=== PATIENT | male | born 1955 | race Caucasian/White ===

== ENCOUNTER 2017-04-02 11:18 | Emergency (ER) | payer MEDICAID ==
[~2017-04-02 11:18] MED LIST: AMBIEN10 MG PO; BACTRIM DS TABL1 TAB PO; COLACE100 MG PO; COUMADIN10 MG PO; DILAUDID8 MG PO; DOXYCYCLINE HY100 M2 PO; ELIQUIS2.5 MG PO; HYDROCODONE-APA1 TAB PO; MS CONTIN15 MG PO; SENOKOT-S TABLE1 TAB PO; TEFLARO600 MG IV; VANCOMYCIN 1 GM/1 G1 IV; VANCOMYCIN 1 GM/1 G1 IVPB; VITAMIN D50000 UNIT PO
[2017-04-02 13:57] LABS: BASOPHILS 0.1 % (0-2); EOSINOPHILS 5.4 % (0-7); HEMATOCRIT 26.3 % (42.0-54.0); HEMOGLOBIN 8.4 g/dL (13.5-17.5); IMMATURE GRANULOCYTES 1.2 % (0-5); MCH 28.9 pg (26.0-34.0); MCHC 31.9 g/dL (31.0-37.0); MCV 90.4 fL (80.0-100.0); MEAN PLATELET VOLUME 8.4 fL (7.4-10.4); NEUTROPHILS 74.3 % (40-80); RBC 2.91 10x6/uL (4.20-6.10); RDW 16.3 % (11.5-14.5); WBC 15.4 10x3/uL (4.8-10.8)
[2017-04-02 13:59] LABS: PLATELET COUNT 396 10x3/uL (130-400)
[2017-04-02 14:13] LABS: ALBUMIN 1.9 g/dL (3.4-5.0); ALKALINE PHOSPHATASE 78 U/L (46-116); ALT (SGPT) 30 U/L (10-68); BILIRUBIN - TOTAL 0.49 mg/dL (0.2-1.3); CALC OSMOLALITY 268 mosm/kg (275-300); CALCIUM 8.5 mg/dL (8.5-10.1); CARBON DIOXIDE 28.2 mmol/L (21.0-32.0); CHLORIDE - SERUM 97 mmol/L (98-107); CREATININE - SERUM 0.7 mg/dL (0.6-1.3); GLUCOSE 96 mg/dL (74-106); POTASSIUM - SERUM 4.1 mmol/L (3.5-5.1); PROTEIN - SERUM 5.9 g/dL (6.4-8.2); SODIUM 133 mmol/L (136-145); UREA NITROGEN 20 mg/dL (7-18); eGFR NON AFRICAN AMERICAN > 90 mL/min (90-120)
== END 2017-04-02 18:36 | disposition home or self-care (01) ==
LOC: D.ER 11:18
PROVIDERS: Nurse Practitioner Family
DX: G89.18 Other acute postprocedural pain (principal); L03.116 Cellulitis of left lower limb; F17.200 Nicotine dependence, unspecified, uncomplicated

== ENCOUNTER 2017-07-17 15:25 | Emergency (ER) | payer MEDICAID | END 2017-07-17 21:10 | disposition home or self-care (01) | LOC: D.ER 15:25 | DX: M25.552 Pain in left hip (principal); Z98.890 Other specified postprocedural states; Z96.642 Presence of left artificial hip joint; L76.34 Postprocedural seroma of skin and subcutaneous tissue following other procedure; F17.200 Nicotine dependence, unspecified, uncomplicated ==

== ENCOUNTER 2017-11-07 08:00 | Outpatient (CLI) | payer MEDICAID ==
[2014-11-08 16:42] VITALS: Wt 80.3 kg
[2017-11-07 12:25] LABS: HEMOGLOBIN 12.9 g/dL (13.5-17.5); MCH 29.3 pg (26.0-34.0); MCHC 31.5 g/dL (31.0-37.0); MEAN PLATELET VOLUME 9.4 fL (7.4-10.4); RBC 4.41 10x6/uL (4.20-6.10); WBC 7.6 10x3/uL (4.8-10.8)
== END 2017-11-07 08:01 | disposition home or self-care (01) ==
LOC: D.OPS 08:00 → EDSTATUS 11-10 09:00 → D.PAN 11-10 09:00
PROVIDERS: Anesthesiology
DX: K40.20 Bilateral inguinal hernia, without obstruction or gangrene, not specified as recurrent (principal); Z01.810 Encounter for preprocedural cardiovascular examination; Z01.811 Encounter for preprocedural respiratory examination; Z01.812 Encounter for preprocedural laboratory examination; Z53.9 Procedure and treatment not carried out, unspecified reason

== ENCOUNTER 2017-12-24 06:00 | Day surgery (SDC) | payer MEDICAID ==
[~2017-12-24] VITALS: Ht 172.7 cm; Wt 80.3 kg
[2017-12-24 06:20] VITALS: BP 116/77; Ht 172.7 cm; Wt 80.3 kg
[2017-12-24] MEDS ORDERED: HYDROCODON-ACE1 EAC7 PO (09:42)
[2017-12-24] MEDS ORDERED: FLOMAX0.4 MG PO (09:42)
[2017-12-24] MEDS ORDERED: FUROSEMIDE20 MG PO (09:42)
== END 2017-12-24 12:00 | disposition home or self-care (01) ==
LOC: D.OPS 06:00
DX: K40.20 Bilateral inguinal hernia, without obstruction or gangrene, not specified as recurrent (principal); Z01.812 Encounter for preprocedural laboratory examination

== ENCOUNTER 2018-04-10 22:22 | Emergency (ER) | payer MEDICAID ==
[~2018-04-10] VITALS: Ht 172.7 cm; Wt 85.0 kg
[~2018-04-10 22:22] MED LIST changes: +FLOMAX0.4 MG PO; +FUROSEMIDE20 MG PO; +HYDROCODON-ACE1 EAC7 PO
[2018-04-10 22:28] VITALS: Ht 172.7 cm; Wt 85.0 kg
[2018-04-10 22:48] LABS: BASOPHILS 0.1 % (0-2); EOSINOPHILS 2.7 % (0-7); HEMATOCRIT 42.3 % (42.0-54.0); HEMOGLOBIN 14.3 g/dL (13.5-17.5); IMMATURE GRANULOCYTES 0.2 % (0-5); LYMPHOCYTES 28.5 % (15-50); MCHC 33.8 g/dL (31.0-37.0); MCV 94.6 fL (80.0-100.0); MEAN PLATELET VOLUME 9.4 fL (7.4-10.4); MONOCYTES 6.4 % (2-11); NEUTROPHILS 62.1 % (40-80); PLATELET COUNT 198 10x3/uL (130-400); RBC 4.47 10x6/uL (4.20-6.10); RDW 12.9 % (11.5-14.5); WBC 8.6 10x3/uL (4.8-10.8)
[2018-04-10 23:09] LABS: ALBUMIN 3.4 g/dL (3.4-5.0); ALKALINE PHOSPHATASE 127 U/L (46-116); ALT (SGPT) 30 U/L (10-68); AMYLASE - SERUM 59 U/L (25-115); BILIRUBIN - TOTAL 0.56 mg/dL (0.2-1.3); CALC OSMOLALITY 288 mosm/kg (275-300); CALCIUM 8.8 mg/dL (8.5-10.1); CHLORIDE - SERUM 107 mmol/L (98-107); CREATININE - SERUM 1.5 mg/dL (0.6-1.3); GLUCOSE 104 mg/dL (74-106); LIPASE 111 U/L (73-393); POTASSIUM - SERUM 4.1 mmol/L (3.5-5.1); PROTEIN - SERUM 7.2 g/dL (6.4-8.2); SODIUM 142 mmol/L (136-145); TROPONIN-I < 0.017 ng/mL (0.000-0.060); UREA NITROGEN 30 mg/dL (7-18); eGFR NON AFRICAN AMERICAN 51 mL/min (90-120)
[2018-04-11 00:58] LABS: APPEARANCE CLEAR (CLEAR); COLOR YELLOW (YELLOW)
[2018-04-11 00:59] LABS: BILIRUBIN NEGATIVE (NEGATIVE); GLUCOSE NEGATIVE (NEGATIVE); KETONE NEGATIVE (NEGATIVE); NITRITE NEGATIVE (NEGATIVE); PROTEIN NEGATIVE (NEGATIVE); UROBILINOGEN NORMAL (NORMAL)
[2018-04-11] MEDS ORDERED: FLAGYL500 MG PO (01:34)
[2018-04-11] MEDS ORDERED: CIPRO500 MG PO (01:34)
[2018-04-11 01:57] VITALS: BP 139/77
== END 2018-04-11 01:57 | disposition home or self-care (01) ==
LOC: D.ER 22:22
PROVIDERS: Family Medicine
DX: K52.9 Noninfective gastroenteritis and colitis, unspecified (principal); Z86.19 Personal history of other infectious and parasitic diseases; F17.200 Nicotine dependence, unspecified, uncomplicated

== ENCOUNTER 2018-04-20 13:54 | Emergency (ER) | payer MEDICAID ==
[~2018-04-20] VITALS: Ht 172.7 cm; Wt 81.8 kg
[~2018-04-20 13:54] MED LIST changes: +CIPRO500 MG PO; +FLAGYL500 MG PO
[2018-04-20 13:58] VITALS: Ht 172.7 cm; Wt 81.8 kg
[2018-04-20 14:30] LABS: BASOPHILS 0.2 % (0-2); EOSINOPHILS 1.6 % (0-7); HEMATOCRIT 44.9 % (42.0-54.0); HEMOGLOBIN 15.2 g/dL (13.5-17.5); IMMATURE GRANULOCYTES 0.3 % (0-5); MCH 31.7 pg (26.0-34.0); MCHC 33.9 g/dL (31.0-37.0); MCV 93.7 fL (80.0-100.0); MEAN PLATELET VOLUME 9.4 fL (7.4-10.4); MONOCYTES 7.3 % (2-11); NEUTROPHILS 73.6 % (40-80); RBC 4.79 10x6/uL (4.20-6.10); RDW 13.1 % (11.5-14.5); WBC 11.8 10x3/uL (4.8-10.8)
[2018-04-20 14:49] LABS: ALBUMIN 3.5 g/dL (3.4-5.0); ALKALINE PHOSPHATASE 117 U/L (46-116); ALT (SGPT) 21 U/L (10-68); AMYLASE - SERUM 86 U/L (25-115); BILIRUBIN - TOTAL 0.51 mg/dL (0.2-1.3); CALC OSMOLALITY 281 mosm/kg (275-300); CARBON DIOXIDE 23.1 mmol/L (21.0-32.0); CHLORIDE - SERUM 105 mmol/L (98-107); CREATININE - SERUM 0.8 mg/dL (0.6-1.3); GLUCOSE 108 mg/dL (74-106); LIPASE 127 U/L (73-393); POTASSIUM - SERUM 4.1 mmol/L (3.5-5.1); PROTEIN - SERUM 7.4 g/dL (6.4-8.2); SODIUM 141 mmol/L (136-145); UREA NITROGEN 12 mg/dL (7-18); eGFR NON AFRICAN AMERICAN > 90 mL/min (90-120)
[2018-04-20 14:51] LABS: PLATELET COUNT 247 10x3/uL (130-400)
[2018-04-20 16:48] LABS: APPEARANCE CLEAR (CLEAR); BILIRUBIN 1+ (NEGATIVE); COLOR DK YELLOW (YELLOW); GLUCOSE NEGATIVE (NEGATIVE); KETONE NEGATIVE (NEGATIVE); NITRITE NEGATIVE (NEGATIVE); PROTEIN TRACE mg/dL (NEGATIVE); SPECIFIC GRAVITY 1.015 (1.005-1.020); UROBILINOGEN NORMAL (NORMAL)
[2018-04-20 16:50] LABS: BACTERIA FEW /hpf (NONE SEEN); EPITHELIAL CELLS 0-5 /hpf (0-5); MUCUS <1+ /lpf (NONE SEEN); RED CELLS - URINE 0-5 /hpf (0-5)
[2018-04-20] MEDS ORDERED: LOMOTIL 2.5-0.1 EAC1 PO (18:23)
[2018-04-20] MEDS ORDERED: CIPRO500 MG PO (18:23)
[2018-04-20] MEDS ORDERED: HYDROCODON-ACE1 EAC2 PO (18:23)
[2018-04-20] MEDS ORDERED: ZOFRAN ODT4 MG/UDTAB PO (18:23)
[2018-04-20] MEDS ORDERED: FLAGYL500 MG PO (18:23)
[2018-04-20 19:21] VITALS: BP 156/90
== END 2018-04-20 19:15 | disposition home or self-care (01) ==
LOC: D.ER 13:54
PROVIDERS: Family Medicine
DX: K52.9 Noninfective gastroenteritis and colitis, unspecified (principal); R10.12 Left upper quadrant pain; Z86.19 Personal history of other infectious and parasitic diseases

== ENCOUNTER → 2018-06-15 19:31 | Outpatient (CLI) | payer MEDICAID ==
[2018-04-20 13:58] VITALS: BMI 27.4
[~2018-06-15 19:31] MED LIST changes: +HYDROCODON-ACE1 EAC2 PO; +LOMOTIL 2.5-0.1 EAC1 PO; +ZOFRAN ODT4 MG/UDTAB PO
== END | disposition home or self-care (01) ==
LOC: D.LABREF 19:31
PROVIDERS: ATTEND Internal Medicine Gastroenterology
DX: R93.89 Abnormal findings on diagnostic imaging of other specified body structures (principal); K59.00 Constipation, unspecified; B18.2 Chronic viral hepatitis C

== ENCOUNTER → 2018-06-22 08:58 | Outpatient (CLI) | payer MEDICAID ==
[2018-04-20 13:58] VITALS: BMI 27.4
== END | disposition home or self-care (01) ==
LOC: D.US 08:58
PROVIDERS: ATTEND Internal Medicine Gastroenterology
DX: K63.3 Ulcer of intestine (principal); K59.00 Constipation, unspecified; B18.2 Chronic viral hepatitis C

== ENCOUNTER → 2018-08-25 16:17 | Outpatient (CLI) | payer MEDICAID ==
[2018-04-20 13:58] VITALS: BMI 27.4
[2018-08-28 15:15] LABS: HCVGENO - HEP C QUANT 360 IU/mL (()); HCVGENO - LOG 10 2.556 (())
== END | disposition home or self-care (01) ==
LOC: D.LAB 16:17
PROVIDERS: ATTEND Internal Medicine Gastroenterology
DX: B18.2 Chronic viral hepatitis C (principal)

== ENCOUNTER → 2018-10-09 14:20 | Outpatient (CLI) | payer MEDICAID ==
[2018-04-20 13:58] VITALS: BMI 27.4
[~2018-10-09 14:20] MED LIST changes: +ALBUTEROL SULF8.5 GM INH; +BUPRENORPHINE; +NALOXONE
[2018-10-09 15:51] LABS: UDS - AMPHET NEGATIVE QUAL (NEGATIVE); UDS - BARB NEGATIVE QUAL (NEGATIVE); UDS - BENZO POSITIVE QUAL (NEGATIVE); UDS - COCAINE NEGATIVE QUAL (NEGATIVE); UDS - OPIATE POSITIVE QUAL (NEGATIVE); UDS - PCP NEGATIVE QUAL (NEGATIVE); UDS - THC POSITIVE QUAL (NEGATIVE)
[2018-10-12 09:08] LABS: HCVGENO - HEP C QUANT 140 IU/mL (()); HCVGENO - LOG 10 2.146 (())
== END | disposition home or self-care (01) ==
LOC: D.LAB 14:20
PROVIDERS: ATTEND Internal Medicine Gastroenterology
DX: B18.2 Chronic viral hepatitis C (principal)

== ENCOUNTER 2018-10-16 15:47 | Inpatient (IN) | payer MEDICAID ==
[~2018-10-16] VITALS: Ht 172.7 cm; Wt 83.9 kg
[~2018-10-16 15:47] MED LIST changes: -ALBUTEROL SULF8.5 GM INH; -BUPRENORPHINE; -NALOXONE
[2018-10-16 16:27] LABS: BASOPHILS 0.2 % (0-2); EOSINOPHILS 10.8 % (0-7); HEMATOCRIT 39.1 % (42.0-54.0); HEMOGLOBIN 13.2 g/dL (13.5-17.5); IMMATURE GRANULOCYTES 0.2 % (0-5); LYMPHOCYTES 38.7 % (15-50); MCH 32.8 pg (26.0-34.0); MCHC 33.8 g/dL (31.0-37.0); MCV 97.3 fL (80.0-100.0); MEAN PLATELET VOLUME 9.4 fL (7.4-10.4); MONOCYTES 9.2 % (2-11); NEUTROPHILS 40.9 % (40-80); RBC 4.02 10x6/uL (4.20-6.10); RDW 12.9 % (11.5-14.5); WBC 5.6 10x3/uL (4.8-10.8)
[2018-10-16 16:44] LABS: PLATELET COUNT 151 10x3/uL (130-400)
[2018-10-16 16:46] LABS: ALBUMIN 3.3 g/dL (3.4-5.0); ALKALINE PHOSPHATASE 124 U/L (46-116); ALT (SGPT) 21 U/L (10-68); BILIRUBIN - TOTAL 0.56 mg/dL (0.2-1.3); CALC OSMOLALITY 281 mosm/kg (275-300); CALCIUM 8.3 mg/dL (8.5-10.1); CARBON DIOXIDE 26.5 mmol/L (21.0-32.0); CHLORIDE - SERUM 107 mmol/L (98-107); CREATININE - SERUM 0.7 mg/dL (0.6-1.3); GLUCOSE 98 mg/dL (74-106); POTASSIUM - SERUM 3.8 mmol/L (3.5-5.1); PROTEIN - SERUM 6.5 g/dL (6.4-8.2); SODIUM 141 mmol/L (136-145); UREA NITROGEN 16 mg/dL (7-18); eGFR NON AFRICAN AMERICAN > 90 mL/min (90-120)
[2018-10-16 16:52] LABS: INR 1.02 (0.85-1.17); PROTIME 12.9 SECONDS (11.6-15.0)
[2018-10-16 16:57] LABS: CKMB 11.5 U/L (0.0-3.6); CREATINE KINASE 274 UL (21-232); MAGNESIUM - SERUM 1.8 mg/dL (1.8-2.4)
[2018-10-16 16:58] LABS: TROPONIN-I < 0.017 ng/mL (0.000-0.060)
[2018-10-16 17:33] LABS: CKMB 12.2 U/L (0.0-3.6); CREATINE KINASE 273 UL (21-232)
[2018-10-16 17:34] LABS: TROPONIN-I < 0.017 ng/mL (0.000-0.060)
--- NOTE | 2018-10-16 18:15 | NUR ---
UNABLE TO OBTAIN IV ACCESS AFTER 2 UNSUCCESSFUL ATTEMPTS. SOLUMEDROL GIVEN IM
[2018-10-16 18:19] LABS: APPEARANCE CLEAR (CLEAR); BILIRUBIN NEGATIVE (NEGATIVE); COLOR YELLOW (YELLOW); GLUCOSE NEGATIVE (NEGATIVE); KETONE NEGATIVE (NEGATIVE); NITRITE NEGATIVE (NEGATIVE); PROTEIN NEGATIVE (NEGATIVE); UROBILINOGEN NORMAL (NORMAL)
[2018-10-16 18:23] VITALS: BP 140/81
[2018-10-16 19:00] VITALS: BP 123/72
--- NOTE | 2018-10-16 19:12 | NUR ---
PT GIVEN URINAL
--- NOTE | 2018-10-16 20:18 | NUR ---
PT GIVEN SANDWICH AND SPRITE DENIES ANY FURTHER NEEDS AT THIS TIME.
[2018-10-16 20:21] VITALS: BP 146/82
[2018-10-16 21:00] VITALS: BP 140/81
[2018-10-17] MEDS ORDERED: BUPRENORPHINE (00:13)
[2018-10-17] MEDS ORDERED: NALOXONE (00:13)
[2018-10-17 00:33] VITALS: BP 129/64; BMI 28.1
[2018-10-17 04:46] VITALS: BP 126/71
[2018-10-17 10:04] VITALS: Ht 172.7 cm; Wt 83.9 kg
--- NOTE | 2018-10-17 10:30 | NUR ---
CARDIOLOGY CONSULT CANCELLED BY DR. TREVIÑO.
[2018-10-17 10:44] VITALS: BP 147/85
--- NOTE | 2018-10-17 10:47 | NUR ---
THE PATIENT WAS LYING IN BED AND WATCHING TELEVISION WHEN STAFF ENTERED HIS ROOM. BED IS IN THE LOW POSITION WITH SIDERAILS X2 AND CALL LIGHT WITHIN REACH. THE PATIENT WAS EDUCATED ON EUSE OF A CALL LIGHT AND DEMONSTRATES UNDERSTANDING VIA TEACHBACK METHOD. THE PATIENT APPEARS COMFORTABLE WITH NO QUESTIONS OR CONCERNS AT THIS TIME.
[2018-10-17 12:37] LABS: UDS - AMPHET NEGATIVE QUAL (NEGATIVE); UDS - BARB NEGATIVE QUAL (NEGATIVE); UDS - BENZO POSITIVE QUAL (NEGATIVE); UDS - COCAINE NEGATIVE QUAL (NEGATIVE); UDS - OPIATE NEGATIVE QUAL (NEGATIVE); UDS - PCP NEGATIVE QUAL (NEGATIVE); UDS - THC NEGATIVE QUAL (NEGATIVE)
--- NOTE | 2018-10-17 20:10 | NUR ---
ADMINISTERED PRN TYLENOL PER PT REQUEST FOR DISCOMFORT LEVEL OF 5/10. NO TROUBLE SWALLOWING. DENIES ANY NEEDS AT THIS TIME.
[2018-10-17 20:52] VITALS: BP 130/69
--- NOTE | 2018-10-17 22:14 | NUR ---
PT SITTING ON SIDE OF BED UPON ENETERING. VISITOR AT BED SIDE. ASSESSMENT PERFORMED AT THIS TIME. DENIES ANY NEEDS. BED IN LOWEST POSITION, BED RAILS X2, CALL LIGHT WITHIN REACH. WILL CONTINUE TO MONITOR.
[2018-10-18 00:34] VITALS: BP 126/73
--- NOTE | 2018-10-18 00:37 | NUR ---
PT RESTING SUPINE IN BED UPON ENTERING, WITH EYES CLOSED. BREATHING EVEN AND UNLABORED NO S/S OF DISTRESS. MIDNIGHT VITALS ASSESSED AT THIS TIME. DENIES ANY NEEDS AT THIS TIME. BED IN LOWEST POSITION, BED RAILS X2, CALL LIGHT WITHIN REACH. WILL CONTINUE TO MONITOR.
--- NOTE | 2018-10-18 02:31 | NUR ---
PT RESTING SUPINE WITH EYES CLOSED. BREATHING EVEN AND UNLABORED. NO S/S OF DISTRESS. WILL CONTINUE TO MONITOR.
--- NOTE | 2018-10-18 02:56 | NUR ---
I have reviewed this patient and I concur with the Shift Assessment completed by the Licensed Practical Nurse today this shift.
--- NOTE | 2018-10-18 04:08 | NUR ---
PT RESTING SUPINE WITH EYES CLOSED. BREATHING EVEN AND UNLABORED, NO S/S OF DISTRESS. WILL CONTINUE TO MONITOR.
[2018-10-18 04:56] VITALS: BP 126/70
--- NOTE | 2018-10-18 06:05 | NUR ---
PT UPRIGHT ON THE SIDE OF BED UPON ENTERING. ADMINISTERED MORNING MEDICATION AT THIS TIME, NO TROUBLE SWALLOWING. PROVIDED PT WITH COFFEE REQUESTED. DENIES OTHER NEEDS AT THIS TIME. WILL CONTINUE TO MONITOR.
[2018-10-18 06:12] LABS: BASOPHILS 0 % (0-2); EOSINOPHILS 0 % (0-7); HEMATOCRIT 40.5 % (42.0-54.0); HEMOGLOBIN 13.5 g/dL (13.5-17.5); IMMATURE GRANULOCYTES 0.3 % (0-5); LYMPHOCYTES 6.6 % (15-50); MCH 32.2 pg (26.0-34.0); MCHC 33.3 g/dL (31.0-37.0); MCV 96.7 fL (80.0-100.0); MONOCYTES 3.7 % (2-11); NEUTROPHILS 89.4 % (40-80); PLATELET COUNT 155 10x3/uL (130-400); RBC 4.19 10x6/uL (4.20-6.10); RDW 13.1 % (11.5-14.5)
[2018-10-18 06:19] LABS: WBC 15.1 10x3/uL (4.8-10.8)
[2018-10-18 06:27] LABS: CALC OSMOLALITY 287 mosm/kg (275-300); CALCIUM 9.1 mg/dL (8.5-10.1); CHLORIDE - SERUM 106 mmol/L (98-107); CREATININE - SERUM 0.8 mg/dL (0.6-1.3); GLUCOSE 145 mg/dL (74-106); POTASSIUM - SERUM 4.1 mmol/L (3.5-5.1); SODIUM 141 mmol/L (136-145); eGFR NON AFRICAN AMERICAN > 90 mL/min (90-120)
[2018-10-18 06:28] LABS: UREA NITROGEN 23 mg/dL (7-18)
[2018-10-18 07:37] VITALS: BP 133/74
[2018-10-18] MEDS ORDERED: ALBUTEROL SULF8.5 GM INH (07:38)
== END 2018-10-18 09:08 | disposition home or self-care (01) | DRG 189 ==
LOC: D.ER 15:47 → D.M3 20:51
PROVIDERS: Family Medicine; ADMIT Internal Medicine Nephrology; ATTEND Internal Medicine Nephrology
DX: J96.01 Acute respiratory failure with hypoxia (principal); F17.213 Nicotine dependence, cigarettes, with withdrawal; T59.891A Toxic effect of other specified gases, fumes and vapors, accidental (unintentional), initial encounter; D64.9 Anemia, unspecified; B19.20 Unspecified viral hepatitis C without hepatic coma

== ENCOUNTER 2019-01-31 21:36 | Emergency (ER) | payer MEDICAID ==
[~2019-01-31] VITALS: Ht 172.7 cm; Wt 81.8 kg
[~2019-01-31 21:36] MED LIST changes: +ALBUTEROL SULF8.5 GM INH; +BUPRENORPHINE; +NALOXONE
[2019-01-31 21:42] VITALS: Ht 172.7 cm; Wt 81.8 kg
[2019-01-31] MEDS ORDERED: BUPRENORPHIN-N1 EACH SL (21:45)
[2019-01-31] MEDS ORDERED: MEDROL DOSE PACK4 MG PO (23:10)
[2019-01-31] MEDS ORDERED: CYCLOBENZAPRINE10 MG PO (23:10)
[2019-01-31] MEDS ORDERED: ULTRAM50 MG PO (23:10)
[2019-01-31 23:41] VITALS: BP 112/89
== END 2019-01-31 23:43 | disposition home or self-care (01) ==
LOC: D.ER 21:36
DX: S22.32XA Fracture of one rib, left side, initial encounter for closed fracture (principal); W19.XXXA Unspecified fall, initial encounter; Y93.9 Activity, unspecified; Y92.9 Unspecified place or not applicable; S63.502A Unspecified sprain of left wrist, initial encounter; Z86.19 Personal history of other infectious and parasitic diseases; M19.90 Unspecified osteoarthritis, unspecified site